=== PATIENT | female | born 1990 | race Caucasian/White ===

== ENCOUNTER 2019-02-23 19:27 | Emergency (ER) | payer SELFPAY ==
--- NOTE | 2019-02-23 19:33 | PDOC ---
Rapid Medical Evaluation Time Seen by Provider: 02/23/19 19:32 Medical Evaluation: Allergies Allergy/AdvReac Type Severity Reaction Status Date / Time No Known Allergies Allergy Verified 10/05/13 18:03 02/23/19 19:32 Pt c/o: prolonged vag bleeding stopped today, denies weakness, dizziness, sob, or abd pain Pt on brief exam: vss, no abd tenderness Pt ordered for: u preg, cbc, Pt to proceed to the ED Discharge Disposition - Diagnosis Vagina bleeding - Discharge Dispostion Disposition: HOME Condition at time of disposition: Good - Referrals - Patient Instructions Additional Instructions: Your test was negative here If you continue to bleed heavily with your menses, please follow-up with your WASTE DISPOSAL ATTENDANT for further evaluation - Post Discharge Activity
[2019-02-23 19:34] VITALS: BP 121/80; PULSE 71; TEMP 98.3; BMI 29.2
--- NOTE | 2019-02-23 19:45 | PDOC ---
History of Present Illness - General Chief Complaint: Vaginal Bleeding Stated Complaint: VAGINAL BLEEDING Time Seen by Provider: 02/23/19 19:32 History Source: Patient - History of Present Illness Timing/Duration: reports: resolved prior to arrival Past History - Past Medical History Allergies/Adverse Reactions: Allergies Allergy/AdvReac Type Severity Reaction Status Date / Time No Known Allergies Allergy Verified 02/23/19 19:50 Home Medications: Ambulatory Orders No Home Medications 0 dose .ROUTE UTDICT 09/13/13 COPD: No - Reproductive History (#): 1 Para: 0 Cervical CA: No Dysfunctional Uterine Bleeding: No Ectopic : No Endometrial CA: No Polycystic Ovaries: No Therapeutic (s) & number: No Tubal Ligation: No Spontaneous : 0 - Psycho Social/Smoking Cessation Hx Smoking History: Never smoked Have you smoked in the past 12 months: No Hx Alcohol Use: Yes (socially) Drug/Substance Use Hx: No Review of Systems - Review of Systems ABD/GI: No: Nausea, Vomiting, Abdominal cramping : No: Dysuria Neurological: No: Dizziness *Physical Exam - Vital Signs Last Vital Signs Temp Pulse Resp BP Pulse Ox 98.3 F 71 19 121/80 100 02/23/19 19:30 02/23/19 19:30 02/23/19 19:30 02/23/19 19:30 02/23/19 19:30 - Physical Exam General Appearance: Yes: Appropriately Dressed. No: Apparent Distress HEENT: positive: Normal Voice Neck: positive: Supple Respiratory/Chest: negative: Respiratory Distress Gastrointestinal/Abdominal: positive: Soft. negative: Tender Integumentary: positive: Dry, Warm Neurologic: positive: Fully Oriented, Alert, Normal Mood/Affect Medical Decision Making - Medical Decision Making 02/23/19 20:35 28-year-old female, endorses history of irregular menses, here for evaluation for vaginal bleeding. Patient states she started bleeding last Tuesday and states bleeding ended today but concerned because she was bleeding very heavily and having had to change pads or tampons every several hrs. States she normally does not bleed that heavily with her periods. Not currently on control. No dizziness, weakness, abdominal pain, nausea, vomiting, fever, chills or dysuria. No h/o fibroids. Pt well ravi and stable. Upreg neg. Dc w/ ANIMAL CRUELTY INVESTIGATION SUPERVISOR f/u as needed Discharge - Discharge Information Problems reviewed: Yes Clinical Impression/Diagnosis: Vagina bleeding Condition: Good - Follow up/Referral - Patient Discharge Instructions Additional Instructions: Your test was negative here If you continue to bleed heavily with your menses, please follow-up with your ANIMAL CRUELTY INVESTIGATION SUPERVISOR for further evaluation - Post Discharge Activity
== END 2019-02-23 20:43 | disposition home or self-care (01) ==
LOC: JERFT 19:27
DX: N92.1 Excessive and frequent menstruation with irregular cycle (principal)
CPT/HCPCS: 84703; 99282-25

== ENCOUNTER 2020-02-11 05:04 | Day surgery (SDC) | payer OTHER ==
--- OUTSIDE RECORDS SUMMARY | 2020-02-06 08:18 | XMS ---
:1990 Author Organization [facility] Support Name Relationship Address Phone [facility] Unavailable [address] [phone] [place] [address] RONALD BANUELOS MOTHER [address] [place] [address] Re-disclosure Warning The records that you are about to access may contain information from federally- assisted alcohol or drug abuse programs. If such information is present, then the following federally mandated warning applies: This information has been disclosed to you from records protected by federal confidentiality rules (42 CFR part 2). The federal rules prohibit you from making any further disclosure of this information unless further disclosure is expressly permitted by the written consent of the person to whom it pertains or as otherwise permitted by 42 CFR part 2. A general authorization for the release of medical or other information is NOT sufficient for this purpose. The Federal rules restrict any use of the information to criminally investigate or prosecute any alcohol or drug abuse patient.The records that you are about to access may contain highly sensitive health information, the redisclosure of which is protected by Article 27-F of the [facility] Public Health law. If you continue you may haveaccess to information: Regarding HIV / AIDS; Provided by facilities licensed or operated by the [facility] Office of Mental Health; or Provided by the [facility] Office for People With Developmental Disabilities. If such information is present, then the following [facility] mandated warning applies: This information has been disclosed to you from confidential records which are protected by state law. State law prohibits you from making any further disclosure of this information without the specific written consent of the person to whom it pertains, or as otherwise permitted by law. Any unauthorized further disclosure in violation of state law may result in a fine or halfway sentence or both. A general authorization for the release of medical or other information is NOT sufficient authorization for further disclosure. Insurance Providers Payer name Policy type Policy ID Covered Covered democrat's Policy P chelle / Coverage democrat ID relationship to Michael Inf ormation type michael AFFINITY [id number] SP [id number] SELF PAY SP INSURANCE MEDICAID [id number] SP [id number] Results ID Date Data Source [id number] 08/25/2019 02:45:00 PM EDT [facility] Name Value Range Interpretation Code Description Data Leslie rce(s) Supporting Document(s ) COV2 [facility] This lab was ordered by [facility] johnson reported by [facility]. ID Date Data Source [id number] 08/25/2019 02:45:00 PM EDT [facility] Name Value Range Interpretation Code Description Data Leslie rce(s) Supporting Document(s ) COV2 [facility] This lab was ordered by [facility] johnson reported by [facility]. Procedure
--- OUTSIDE RECORDS SUMMARY | 2020-02-11 05:07 | XMS ---
:[address] [facility] Support Name Relationship Address Phone [employer] Unavailable [address] [address] ISABELLA REHAB Unavailable [address] [place] [address] RONALD BANUELOS MOTHER [address] [place] [address] Re-disclosure Warning The records that you are [...] is protected by Article 27-F of the [facility] Public Health law. If you continue you may haveaccess to information: Regarding HIV / AIDS; Provided by facilities licensed or operated by the [facility] Office of Mental Health; or Provided by the [facility] Office for People With Developmental Disabilities. If such information is present, then the following [facility] mandated warning applies: This information has been [...] law may result in a fine or snf sentence or both. A general authorization for the release of medical or other information is NOT sufficient authorization for further disclosure. Insurance Providers Payer name Policy type Policy ID Covered Covered green party's Policy P chelle / Coverage green party ID relationship to Michael Inf ormation type michael AFFINITY [id number] SP [id number] SELF PAY SP INSURANCE MEDICAID [id number] SP [id number] Results ID Date Data Source [id number] 02/07/2020 06:00:00 PM EDT [facility] Name Value Range Interpretation Description Data Sup porting Code Source(s) Document(s ) SARS [facility] coronavirus 2 RNA This lab was ordered by [facility] and reported by [facility]. ID Date Data Source [id number] 08/25/2019 02:45:00 PM EDT [facility] Name Value Range Interpretation Code Description Data Leslie rce(s) Supporting Document(s ) COV2 [facility] This lab was ordered by [facility] johnson reported by [employer] [facility] [place]. ID Date Data Source [id number] 08/25/2019 02:45:00 PM EDT [facility] Name Value Range Interpretation Code Description Data Leslie rce(s) Supporting Document(s ) COV2 [facility] This lab was ordered by [facility] johnson reported by [employer] [place]. Procedure
[2020-02-11 09:46] VITALS: BMI 28.5
[2020-02-11] MEDS ORDERED: ROCURONIUM BROMIDE 50 MG/5 ML SYRINGE ONE (10:35)
[2020-02-11] MEDS ORDERED: PROPOFOL 20 ML ONE (10:35)
[2020-02-11] MEDS ORDERED: fentaNYL CITRATE 250 MCG/5 ML VIAL ONE (10:35)
[2020-02-11] MEDS ORDERED: MIDAZOLAM HCL 2 MG/2 ML SINGLE DOSE VIAL ONE ×2 (10:37)
[2020-02-11] MEDS ORDERED: ceFAZolin SODIUM 1 GM VIAL IVPB ONE (12:42)
[2020-02-11] MEDS ORDERED: ONDANSETRON 4 MG/2 ML VIAL IVPUSH PRN (13:44)
[2020-02-11] MEDS ORDERED: LACTATED RINGERS SOLUTION 1,000 ML IV SCH (13:45)
[2020-02-11] MEDS ORDERED: BUPIVACAINE HCL 50 ML ONE (14:24)
[2020-02-11] MEDS ORDERED: BUPIVACAINE HCL/PF 0.5% (5 MG/ML) 30 ML VIAL IJ ONE (14:31)
[2020-02-11] MEDS ORDERED: ACETAMINOPHEN 1000 MG/100 ML VIAL (NON FORMULARY) IVPB ONE (15:02)
--- NOTE | 2020-02-11 15:12 | OP ---
Operative Note - Note: Operative Date: 02/11/20 Pre-Operative Diagnosis: dermoid cyst Operation: Hysteroscopy, dilation and curettage, robotic, lap assist left dermoid cyst excision Findings: Left dermoid cyst Post-Operative Diagnosis: Same as Pre-op Surgeon: Avni Barrera Consumer Affairs Manager: Chrystal Lee Anesthesia: General Estimated Blood Loss (mls): 25 Fluid Volume Replaced (mls): 1,700
--- NOTE | 2020-02-11 15:14 | SURG ---
Surgery [employer] Note [employer]: Chrystal Lee PA-C Date of Service: 02/11/20 Diagnosis: dermoid cyst Procedure: Hysteroscopy, dilation and curettage, robotic, lap assist left dermoid cyst excision I was present for the entirety of the operative procedure. For further detail, please refer to operative report. Visit type - Case Type Case Type: Scheduled - Emergency Emergency Visit: No - New patient This patient is new to me today: Yes Date on this admission: 02/11/20
[2020-02-11] MEDS ORDERED: oxyCODONE HCL 5 MG TABLET PO PRN (16:44)
[2020-02-11] MEDS ORDERED: IBUPROFEN 600 MG TABLET (FP) PO PRN (16:45)
[2020-02-11 18:35] VITALS: BP 112/73; PULSE 92; TEMP 98
--- NOTE | 2020-02-12 07:36 | OP ---
DATE OF OPERATION: DATE OF DICTATION: 02/11/2020 PREOPERATIVE DIAGNOSES: 1. Menorrhagia. 2. Large left dermoid cyst. 3. Pelvic pain. POSTOPERATIVE DIAGNOSES: 1. Menorrhagia. 2. Large left dermoid cyst. 3. Pelvic pain. OPERATION PERFORMED: 1. Hysteroscopy, dilatation and curettage. 2. Laparoscopy. 3. Robot-assisted resection of dermoid cyst. SURGEON: Bjorn Barrera MD CONSULTING SOFTWARE ENGINEER: JUSTA Rose ANESTHESIA: General. PROCEDURE AND FINDINGS: Under general anesthesia, in the dorsal lithotomy position, following vaginal and vulvar prep and drape the cervix was visualized. The anterior lip of the cervix was grasped with a tenaculum. Hysteroscopy was carried out, with essentially unremarkable findings. No significant polyps or pathology was noted. The os was gently dilated and sharp curettage followed by gallstone forceps exploration was carried out, producing a small amount of tissue. The tissue was sent for pathology. This part of the procedure was then completed. All instruments were withdrawn. Sponge stick was left in the vagina for manipulation. The patient was prepped and draped for robotic surgery. The abdominal cavity was entered with a Veress needle through an infraumbilical 8-mm incision. Pneumoperitoneum was accomplished and a da Alfredo trocar was placed in the cavity. Under direct vision, three additional 8-mm ports were inserted. Two of them were on the right side and one was laterally on the left side. All of them were at the level of the umbilicus. An additional 12-mm port for AirSeal was placed between the umbilicus and left-sided port. Da Alfredo Xi robot was then docked and readied for the operation. A fenestrated bipolar device, [place] device and da Alfredo monopolar scissors were placed in the port. A large dermoid cyst was visualized on the left side. The right ovary was normal. The uterus, cul-de-sac and remainder of the pelvis and abdomen were within normal limits as well. The left ovary was stabilized. A small incision was made in the ovarian capsule, which was then extended longitudinally alongside the ovary. Using mostly blunt and occasional sharp dissection with electric assistance, large dermoid cyst was enucleated and completely freed. This process was careful and tedious. Two small tears happened in the cyst, but minimal spillage was allowed. The cyst was fully dissected. The base of the ovary was then examined and hemostasis was assured. The ovary was then "sealed" together and the robotic part was terminated at that stage. The robot was undocked, and the rest of the surgery was performed laparoscopically. Endo Catch was placed in the 12-mm trocar and cyst was retrieved. It was necessary to rupture it and spill the contents, but this was all contained in a bag. The whole specimen was sent for pathology. A thorough lavage was then carried out. All "greasy" particles were washed out and removed. About 1.5 L of normal saline was used for the lavage. At that point the procedure was completed. The 12-mm incision was then closed laparoscopically using a Josiah-Sophia device and Vicryl 0. At that point all instruments were withdrawn, together with the port, and gas was allowed to escape from the abdomen. All of the incisions were then closed with interrupted Biosyn 2-0 sutures and secured with dermal glue. Total blood loss was less than 25 mL. The patient withstood the procedure well and was transferred to the PACU awake, comfortable and stable. BJORN BARRERA MD JR/[id number] MTDElizabeth
--- NOTE | 2020-02-13 17:15 | PATH ---
Surgical Pathology Report Patient Name: SERINA BORRERO [facility]. Rec. #: [id number] /Age/Gender: 1990 (Age: 29) / F Account: [id number] Location: [facility] SUR[facility]ICAL Taken: 02/11/2020 Received: 02/12/2020 Reported: 02/13/2020 Physicians: Avni Barrera MD Specimen(s) Received A: ENDOMETRIAL CURETTINGS B: DERMOID CYST, LEFT Clinical History Benign left ovarian cyst, abnormal bleeding Final Diagnosis A. ENDOMETRIAL CURETTINGS, DILATATION AND CURETTAGE: FRAGMENTS OF SECRETORY ENDOMETRIUM AND CERVICAL TISSUE WITH SQUAMOUS METAPLASIA AND ACUTE CERVICITIS. B. DERMOID CYST, LEFT, LAPAROSCOPIC ROBOTIC ASSISTED RESECTION: MATURE CYSTIC TERATOMA. Electronically Signed Varsha Mays M.D. Gross Description A. Received in formalin labeled "endometrial curettings," is a 1.7 x 1.3 x 0.3 cm aggregate of dumont brown soft tissue fragments. The formalin is filtered and the specimen is entirely submitted in one cassette. B. Received in formalin labeled "robotic resection of left dermoid cyst," is a 3.6 x 3.1 x 1.3 cm dumont harper, focally disrupted cyst. There is abundant dumont sebaceous material and hair separately received within the same container. The outer surface of the cyst is dumont-harper and smooth. Sectioning reveals focal thickening of the cyst wall. The cyst wall is entirely and sequentially submitted in 5 cassettes. DL/02/12/2020 saudi/02/12/2020
== END 2020-02-11 17:45 | disposition home or self-care (01) ==
LOC: JASU-SURG 05:04
PROVIDERS: ATTEND Specialist
PROC: 0UDB8ZX Extraction of Endometrium, Via Natural or Artificial Opening Endoscopic, Diagnostic (ICD-10-PCS; principal; 2020-02-11 11:30)
PROC: 0UB14ZZ Excision of Left Ovary, Percutaneous Endoscopic Approach (ICD-10-PCS; 2020-02-11 11:30)
PROC: 8E0X4CZ Robotic Assisted Procedure of Upper Extremity, Percutaneous Endoscopic Approach (ICD-10-PCS; 2020-02-11 11:30)
DX: N92.0 Excessive and frequent menstruation with regular cycle (principal); D27.1 Benign neoplasm of left ovary; R10.2 Pelvic and perineal pain
CPT/HCPCS: 58558; 58662; S2900; 81025; 88305-TC; 88307-TC; 94760; J0131